=== PATIENT | female | born 1995 | race Asian ===

== ENCOUNTER 2020-08-27 10:00 | Emergency (ER) | payer BC, OTHER ==
[~2020-08-27] VITALS: Ht 152.4 cm; Wt 77.3 kg
--- NOTE | 2020-08-27 10:21 | NUR ---
[employer] financial sales representative contacted. Will call back after law enforcements evaluation per [employer]'s request.
[2020-08-27] MEDS ORDERED: ibuprofen tablet 400 MG TABLET PO ONE (11:55)
--- NOTE | 2020-08-27 12:02 | NUR ---
Notified [facility] for the second time, Due to no officer have called or come to evaluated patient.
[2020-08-27] MEDS ORDERED: azithromycin 250mg tablet PO ONE (13:20)
[2020-08-27] MEDS ORDERED: CefTRIAXone 250MG IM Kit w/LIDOcaine IM ONE (13:25)
[2020-08-27] MEDS ORDERED: LEVONORGESTREL 1.5 MG (Plan B One-Step) TABLET PO (13:25)
[2020-08-27 13:52] LABS: CLARITY,URINE CLEAR (Clear); COLOR,URINE YELLOW (Yellow); GLUCOSE, URINE NEGATIVE (Neg); KETONES,URINE NEGATIVE (Neg); LEUKOCYTE ESTERASE ,URINE NEGATIVE (Neg); NITRITES, URINE NEGATIVE (Neg); OCCULT BLOOD,URINE MODERATE (Neg); PROTEIN,URINE NEGATIVE (Neg); URINE HCG NEGATIVE (NEG); UROBILINOGEN,URINE 0.2 E.U/dL (0.2-1.0)
[2020-08-27 13:53] LABS: UA COLLECTION TYPE VOIDED
[2020-08-27 13:58] LABS: BACTERIA,URINE FEW /HPF (Neg); MUCUS STRANDS NONE SEEN /LPF (Neg); SQUAMOUS EPITHELIAL CELL,UR FEW /LPF (FEW); WBC,URINE 0-4 /HPF (0-4)
[2020-08-27] MEDS ORDERED: metroNIDAZOLE 500mg tablet PO SCH (16:00)
--- NOTE | 2020-08-27 16:00 | NUR ---
Jurisdiction for case initially unclear. CRN received original case number from D. Case approved by [place] d/t jurisdictional region and falls under the Substance Abuse Clinician Department not D. SART exam started. Braulio Miller advocate with pt. There was a delay in starting exam as [facility] originally slated for exam unable to take it. This rn was pulled from from the unit to complete exam after Dr Lopez [facility] unable to pick it up. Pt gave verbal consent for exam.
[2020-08-27 22:42] VITALS: BP 109/78
== END 2020-08-27 18:10 | disposition home or self-care (01) ==
LOC: ER 10:01
DX: T76.21XA Adult sexual abuse, suspected, initial encounter (principal); R10.2 Pelvic and perineal pain; M54.2 Cervicalgia; Y08.89XA Assault by other specified means, initial encounter; Y93.89 Activity, other specified; Y92.89 Other specified places as the place of occurrence of the external cause; Y99.8 Other external cause status
CPT/HCPCS: 81001; 81025; 96372; 99284; J0696